=== PATIENT | female | born 1955 | race Caucasian/White ===

== ENCOUNTER 2018-07-26 18:04 | Emergency (ER) | payer OTHER ==
[~2018-07-26] VITALS: Ht 160 cm; Wt 68.5 kg
[2018-07-26] MEDS ORDERED: NAPROSYN500 MG PO (18:15)
[2018-07-26] MEDS ORDERED: CHLORZOXAZONE500 M2 PO (18:15)
== END 2018-07-26 19:22 | disposition home or self-care (01) ==
LOC: ED 18:04
DX: T14.8XXA Other injury of unspecified body region, initial encounter (principal); R07.89 Other chest pain; M25.511 Pain in right shoulder; R03.0 Elevated blood-pressure reading, without diagnosis of hypertension; Z88.2 Allergy status to sulfonamides; V43.62XA Car passenger injured in collision with other type car in traffic accident, initial encounter; Y93.89 Activity, other specified; Y92.488 Other paved roadways as the place of occurrence of the external cause; Y99.8 Other external cause status